=== PATIENT | male | born 1950 ===

== ENCOUNTER → 2021-01-28 09:11 | Outpatient (BNVA) | payer MEDICARE, MEDICAID, SELFPAY | PROVIDERS: Family Provider Family Medicine; PCP Specialist; Referring Provider Family Medicine; Visit Provider Orthopaedic Surgery | DX: M25.569 Pain in unspecified knee (principal); M17.0 Bilateral primary osteoarthritis of knee | CPT/HCPCS: 73560; 73565 ==

== ENCOUNTER 2025-03-10 10:26 | Outpatient (CLI) | payer MEDICARE, MEDICAID, SELFPAY ==
--- NOTE | 2025-03-10 10:33 | XR_ITS ---
WS: [id number] XR knee RT 3V* [id number] REASON FOR EXAM: arthritis FINDINGS: No fracture or focal bone lesion. Moderate to significant narrowing of the medial knee joint space with significant subchondral sclerosis and moderate osteophytosis. Ossification within the medial collateral ligament. Mild medial shift of the femur. The lateral knee joint space is intact and relatively well preserved. There is mild subchondral sclerosis and osteophytosis. Patellofemoral joint space is intact. There is mild to moderate narrowing. There is moderate subchondral sclerosis and osteophytosis of the patella and moderate opposing osteophytosis of the femoral condyles. Loose body in the anterior joint space. XR/XR knee RT 3V* [id number] IMPRESSION: Significant osteoarthritis of the right knee as above.
== END 2025-03-10 10:27 | disposition home or self-care (01) ==
PROVIDERS: PCP Family Medicine; Visit Provider Family Medicine
DX: M25.761 Osteophyte, right knee (principal); M17.11 Unilateral primary osteoarthritis, right knee
CPT/HCPCS: 73562